=== PATIENT | female | born 1930 | race Caucasian/White ===

== ENCOUNTER 2017-01-18 01:59 | Emergency (ER) | payer MEDICARE ==
[~2017-01-18] VITALS: Ht 167.6 cm; Wt 62.7 kg
[~2017-01-18 01:59] MED LIST: ASPIRIN E.C. 8181 MG PO; ASPRIN; ASTRAZENECA PO; ATORVASTATIN PO; CALCIUM + D 5001 TAB PO; CARDI-OMEGA1000 MG PO; HCTZ 25MG25 MG PO; MELATONIN PO; SIMVASTATIN80 MG PO; TOPROL XL 25MG25 MG PO; TRAVOPROST; TRUSOPT 5 ML5 ML OP
[2017-01-18 02:01] VITALS: TEMP 98
[2017-01-18] MEDS ORDERED: ZOFRAN8 MG PO (02:29)
[2017-01-18 03:05] LABS: BASO # 0.1 (0.0-0.2); BASO % 0.6 % (0.0-2.0); EOS # 0.1 (0.0-0.7); EOS % 0.4 % (0-4.0); GRAN # 9.9 (1.4-6.5); HEMATOCRIT 39.1 % (37.0-47.0); HEMOGLOBIN 13.1 g/dl (12.5-16.0); LYMPH # 1.1 (1.2-3.4); LYMPH % 9.7 % (20.0-51.0); MEAN CELL VOLUME 93 fl (80.0-100.0); MEAN CORPUSCULAR HEMOGLOBIN 31 pg (27.0-31.0); MEAN CORPUSCULAR HGB CONC 34 g/dl (33.0-37.0); MONO # 0.5 (0.1-0.6); PLATELET COUNT 289 K/mm3 (130-400); RED BLOOD COUNT 4.22 M/mm3 (4.10-5.30); REDCELL DISTRIBUTION WIDTH-CV 12.2 % (11.5-14.5); WHITE BLOOD COUNT 11.6 K/mm3 (4.8-10.8)
[2017-01-18 03:13] LABS: ADJUSTED CALCIUM 10.1 mg/dL (8.4-10.2); BILIRUBIN,TOTAL 0.9 mg/dL (0.0-1.0); CALCIUM 10.1 mg/dL (8.4-10.2); CREATININE, serum 0.72 mg/dL (0.52-1.25); POTASSIUM 3.6 mmol/L (3.4-5.0)
[2017-01-18 03:24] VITALS: BP 137/68; PULSE 76
== END 2017-01-18 03:28 | disposition home or self-care (01) ==
LOC: COL.ER 01:59
PROVIDERS: Emergency Medicine
DX: E86.9 Volume depletion, unspecified (principal); I10 Essential (primary) hypertension; E78.5 Hyperlipidemia, unspecified; Z79.82 Long term (current) use of aspirin; Z90.710 Acquired absence of both cervix and uterus; Z90.49 Acquired absence of other specified parts of digestive tract
CPT/HCPCS: J1885; J2405; J7030

== ENCOUNTER 2017-08-12 06:04 | Emergency (ER) | payer MEDICARE ==
[~2017-08-12] VITALS: Ht 165.1 cm; Wt 59.1 kg
[~2017-08-12 06:04] MED LIST changes: +ZOFRAN8 MG PO
[2017-08-12 06:09] VITALS: TEMP 98.2
[2017-08-12] MEDS ORDERED: LIPITOR 40MG TA40 MG PO (06:36)
[2017-08-12] MEDS ORDERED: CALCIUM 600 PLU1 TAB PO (06:37)
[2017-08-12] MEDS ORDERED: MELAT3MGTAB (06:37)
[2017-08-12] MEDS ORDERED: TOPROL XL 25MG25 MG PO (06:38)
[2017-08-12] MEDS ORDERED: OMEGA-3 FISH1000 MG PO (06:38)
[2017-08-12] MEDS ORDERED: ALPHAGAN OPHTH D5 ML OU (06:39)
[2017-08-12] MEDS ORDERED: TRAVATAN Z 2.52.5 ML OU (06:39)
[2017-08-12] MEDS ORDERED: REFRESH TEARS 330 ML OP (06:39)
[2017-08-12 07:21] LABS: BASO # 0.1 (0.0-0.2); BASO % 0.9 % (0.0-2.0); EOS # 0.1 (0.0-0.7); EOS % 0.6 % (0-4.0); GRAN # 5.9 (1.4-6.5); GRAN % 73.8 % (42.2-75.2); HEMOGLOBIN 12.5 g/dl (12.5-16.0); LYMPH # 1.5 (1.2-3.4); LYMPH % 18.6 % (20.0-51.0); MEAN CELL VOLUME 91 fl (80.0-100.0); MEAN CORPUSCULAR HEMOGLOBIN 32 pg (27.0-31.0); MEAN CORPUSCULAR HGB CONC 35 g/dl (33.0-37.0); MEAN PLATELET VOLUME 9.2 fl (7.4-10.4); MONO # 0.5 (0.1-0.6); MONO % 5.7 % (1.7-9.3); PLATELET COUNT 303 K/mm3 (130-400); RED BLOOD COUNT 3.94 M/mm3 (4.10-5.30); REDCELL DISTRIBUTION WIDTH-CV 12.1 % (11.5-14.5)
[2017-08-12 07:29] LABS: HEMATOCRIT 35.9 % (37.0-47.0)
[2017-08-12 07:32] LABS: ALANINE AMINOTRANSFERASE 33 U/L (9-52); ALBUMIN 3.8 gm/dL (3.5-5.0); ALKALINE PHOSPHATASE 86 U/L (50-136); ANION GAP 11 mmol/L (7-16); AST,SGOT 28 U/L (15-37); BILIRUBIN,TOTAL 0.8 mg/dL (0.0-1.0); BLOOD UREA NITROGEN 20 mg/dL (7-17); CALCIUM 9.9 mg/dL (8.4-10.2); CARBON DIOXIDE 28 mmol/L (22-30); CHLORIDE 102 mmol/L (98-107); CREATININE, serum 0.78 mg/dL (0.52-1.25); GLUCOSE 117 mg/dL (74-106); POTASSIUM 3.1 mmol/L (3.4-5.0); SODIUM 140 mmol/L (137-145); TOTAL PROTEIN 6.8 gm/dL (6.4-8.2)
[2017-08-12 07:36] LABS: C-REACTIVE PROTEIN < 0.5 mg/dL (0.0-0.9)
[2017-08-12 08:01] LABS: COLLECTION METHOD CLEAN CATCH
[2017-08-12 08:31] LABS: MUCOUS Present /lpf; PH 6 (5-8); SQUAMOUS EPITHELIAL 0-2 /hpf; URINE APPEARANCE Clear; URINE BACTERIA Rare /hpf; URINE BILIRUBIN Negative (NEGATIVE); URINE BLOOD 2+ (NEGATIVE); URINE COLOR Yellow; URINE GLUCOSE Negative (NEGATIVE); URINE KETONE Negative (NEGATIVE); URINE LEUKOCYTE ESTERASE 1+ (NEGATIVE); URINE NITRATE Negative (NEGATIVE); URINE PROTEIN(semi-quant) Negative (NEGATIVE); URINE RBC 0-2 /hpf; URINE UROBILINOGEN Negative (NEGATIVE)
[2017-08-12] MEDS ORDERED: K-DUR20 MEQ PO (08:47)
[2017-08-12 08:50] VITALS: BP 144/72; PULSE 70
== END 2017-08-12 08:59 | disposition home or self-care (01) ==
LOC: COL.ER 06:04
PROVIDERS: Family Medicine
DX: E87.6 Hypokalemia (principal)
CPT/HCPCS: J7030